=== PATIENT | male | born 1960 | race Caucasian/White ===

== ENCOUNTER 2018-01-30 21:20 | Emergency (ER) | payer OTHER ==
[2018-01-30 21:26] VITALS: TEMP 97.5
[2018-01-30 22:08] LABS: Basophils # (A) 0.1 k/uL (0-0.2); Basophils % (A) 1 %; Eosinophils # (A) 0.4 k/uL (0-0.7); Eosinophils % (A) 5 %; HGB 15.9 gm/dL (13.0-17.5); Lymphocytes % (A) 23 %; MCH 31.8 pg (25.0-35.0); MCHC 33.9 g/dL (31.0-37.0); Mean Platelet Volume 6.5; Monocytes # (A) 0.5 k/uL (0-1.0); Monocytes % (A) 5 %; Neutrophils # (A) 5.5 k/uL (1.3-7.7); Neutrophils % (A) 63 %; Platelet Count 265 k/uL (150-450); RDW 13.2 % (11.5-15.5); WBC 8.6 k/uL (3.8-10.6)
[2018-01-30 22:18] LABS: ALT 26 U/L (21-72); AST 21 U/L (17-59); Albumin 4.1 g/dL (3.5-5.0); Alkaline Phosphatase 75 U/L (38-126); Anion Gap 15 mmol/L; Blood Urea Nitrogen 11 mg/dL (9-20); Calcium 9.1 mg/dL (8.4-10.2); Carbon Dioxide 17 mmol/L (22-30); Chloride 103 mmol/L (98-107); Glucose 95 mg/dL (74-99); Potassium 4.7 mmol/L (3.5-5.1); Sodium 135 mmol/L (137-145); Total Bilirubin 0.6 mg/dL (0.2-1.3); Total Protein 6.3 g/dL (6.3-8.2)
--- NOTE | 2018-01-30 22:18 | XR ---
EXAMINATION TYPE: XR chest 2V DATE OF EXAM: 01/30/2018 COMPARISON: NONE HISTORY: Chest pain TECHNIQUE: Frontal and lateral views of the chest are obtained. FINDINGS: There is no heart failure nor confluent pneumonic infiltrate. Costophrenic angles are yoel r. Bony thorax is intact. Pulmonary vascularity is normal. IMPRESSION: Normal chest
[2018-01-30 22:21] LABS: Alcohol 194 mg/dL; Creatine Kinase 58 U/L (55-170)
[2018-01-30 22:31] LABS: INR 0.9 (<1.2); Partial Thromboplastin Time 22.3 sec (22.0-30.0); Prothrombin Time 9.4 sec (9.0-12.0)
[2018-01-30 22:34] LABS: Creatine Kinase MB 1.1 ng/mL (0.0-2.4); Troponin I <0.012 ng/mL (0.000-0.034)
--- NOTE | 2018-01-30 22:46 | ED ---
General Adult HPI - General Chief complaint: Chest Pain Stated complaint: Chest pain/armpit abscess Time Seen by Provider: 01/30/18 21:32 Source: patient, RN notes reviewed, old records reviewed Mode of arrival: wheelchair Limitations: no limitations - History of Present Illness Initial comments: 57-year-old male presents with chief complaint of left axilla pain and swelling and upper chest pain. Patient's chest pain is bilateral upper chest pain. No dyspnea. No nausea vomiting. No radiating chest pain. No substernal chest pain. Patient states it is sharp and intermittent in nature. Chief complaint is really abscess in the left axilla. Denies fever or chills. Patient states he has had some swelling in his left axilla for some time, over the past several days this is become warm and erythematous with worsening swelling. No fever or chills. - Related Data Home Medications Medication Instructions Recorded Confirmed Aspirin [Adult Low Dose Aspirin EC] 81 mg PO DAILY 01/30/18 01/30/18 Blood Thinner 1 tab PO DAILY 01/30/18 01/30/18 Lisinopril [Zestril] 5 mg PO DAILY 01/30/18 01/30/18 Previous Rx's Medication Instructions Recorded Cephalexin [Keflex] 500 mg PO Q8HR #30 cap 01/30/18 Sulfamethox-Tmp 800-160Mg [Bactrim 1 tab PO Q12HR #28 tab 01/30/18 DS 800-160 mg] Allergies Allergy/AdvReac Type Severity Reaction Status Date / Time No Known Allergies Allergy Verified 01/30/18 22:10 Review of Systems ROS Statement: Those systems with pertinent positive or pertinent negative responses have been documented in the HPI. ROS Other: All systems not noted in ROS Statement are negative. Past Medical History Past Medical History: Myocardial Infarction ([place]) History of Any Multi-Drug Resistant Organisms: None Reported Past Surgical History: Heart Catheterization With Stent Past Psychological History: No Psychological Hx Reported Smoking Status: Current every day smoker Past Alcohol Use History: Daily Past Drug Use History: None Reported General Exam Limitations: no limitations General appearance: alert, in no apparent distress, appears intoxicated Head exam: Present: atraumatic, normocephalic Eye exam: Present: normal appearance, PERRL ENT exam: Present: normal exam Neck exam: Present: normal inspection. Absent: tenderness, meningismus Respiratory exam: Present: normal lung sounds bilaterally. Absent: respiratory distress, wheezes Cardiovascular Exam: Present: regular rate, normal rhythm GI/Abdominal exam: Present: soft. Absent: distended, tenderness Extremities exam: Present: normal inspection, full ROM. Absent: normal capillary refill, pedal edema Neurological exam: Present: alert, oriented X3 Psychiatric exam: Present: normal affect, normal mood Skin exam: Present: warm, other (4 cm area of swelling in the left axilla, there is fluctuance with surrounding induration, and cellulitis.) Course Vital Signs 01/30/18 01/30/18 01/30/18 21:23 22:29 23:57 Temperature 97.5 F L Pulse Rate 88 72 Respiratory 16 18 Rate Blood Pressure 123/63 186/86 140/67 O2 Sat by Pulse 98 97 Oximetry EKG Findings - EKG Comments: EKG Findings:: EKG: Normal sinus rhythm, left bundle branch block, rate of 82, NJ interval 204, QRS duration 150, QTC 483, no ST segment elevation, negative Scarbosa criteria. Procedures - Incision & Drainage Consent Obtained: verbal consent Time Out Performed?: Yes Site: upper extremity I&D Cleaning Method: Betadine Sterile Field Used?: Yes Scalpel Used: #11 Needle Aspiration Performed?: Yes Irrigation Performed?: Yes I&D Drainage Obtained: Pus Packing: Iodoform Culture Obtained?: No Patient Tolerated Procedure: well Medical Decision Making - Medical Decision Making 57-year-old male presenting for abscess in the left axilla, this restrained in the emergency department, iodoform packing. Patient does have some surrounding cellulitis, will be started on Keflex and Bactrim, given surgical outpatient follow-up. Regarding patient's chest pain, patient does have history of coronary artery disease, his chest pain is atypical. EKG shows normal sinus rhythm with left bundle branch block, this is compared to previous EKG from [facility] and patient does have history of left bundle, overall unchanged EKG. Initial troponin is negative, repeat troponin is negative. If patient's second troponin is negative he will be discharged. He is clinically intoxicated and is discharged with a friend. - Lab Data Result diagrams: 01/30/18 21:53 01/30/18 21:53 Lab Results 01/30/18 01/30/18 01/30/18 Range/Units 21:53 21:53 21:53 WBC 8.6 (3.8-10.6) k/uL RBC 5.00 (4.30-5.90) m/uL Hgb 15.9 (13.0-17.5) gm/dL Hct 47.0 (39.0-53.0) % MCV 94.0 (80.0-100.0) fL MCH 31.8 (25.0-35.0) pg MCHC 33.9 (31.0-37.0) g/dL RDW 13.2 (11.5-15.5) % Plt Count 265 (150-450) k/uL Neutrophils % 63 % Lymphocytes % 23 % Monocytes % 5 % Eosinophils % 5 % Basophils % 1 % Neutrophils # 5.5 (1.3-7.7) k/uL Lymphocytes # 2.0 (1.0-4.8) k/uL Monocytes # 0.5 (0-1.0) k/uL Eosinophils # 0.4 (0-0.7) k/uL Basophils # 0.1 (0-0.2) k/uL PT (9.0-12.0) sec INR (<1.2) APTT (22.0-30.0) sec Sodium 135 L (137-145) mmol/L Potassium 4.7 (3.5-5.1) mmol/L Chloride 103 (98-107) mmol/L Carbon Dioxide 17 L (22-30) mmol/L Anion Gap 15 mmol/L BUN 11 (9-20) mg/dL Creatinine 0.81 (0.66-1.25) mg/dL Est GFR (CKD-EPI)AfAm >90 (>60 ml/min/1.73 sqM) Est GFR (CKD-EPI)NonAf >90 (>60 ml/min/1.73 sqM) Glucose 95 (74-99) mg/dL Calcium 9.1 (8.4-10.2) mg/dL Magnesium 2.0 (1.6-2.3) mg/dL Total Bilirubin 0.6 (0.2-1.3) mg/dL AST 21 (17-59) U/L ALT 26 (21-72) U/L Alkaline Phosphatase 75 (38-126) U/L Total Creatine Kinase 58 (55-170) U/L CK-MB (CK-2) 1.1 (0.0-2.4) ng/mL CK-MB (CK-2) Rel Index 1.9 Troponin I <0.012 (0.000-0.034) ng/mL Total Protein 6.3 (6.3-8.2) g/dL Albumin 4.1 (3.5-5.0) g/dL Serum Alcohol 194 mg/dL 01/30/18 01/31/18 Range/Units 21:53 00:10 WBC (3.8-10.6) k/uL RBC (4.30-5.90) m/uL Hgb (13.0-17.5) gm/dL Hct (39.0-53.0) % MCV (80.0-100.0) fL MCH (25.0-35.0) pg MCHC (31.0-37.0) g/dL RDW (11.5-15.5) % Plt Count (150-450) k/uL Neutrophils % % Lymphocytes % % Monocytes % % Eosinophils % % Basophils % % Neutrophils # (1.3-7.7) k/uL Lymphocytes # (1.0-4.8) k/uL Monocytes # (0-1.0) k/uL Eosinophils # (0-0.7) k/uL Basophils # (0-0.2) k/uL PT 9.4 (9.0-12.0) sec INR 0.9 (<1.2) APTT 22.3 (22.0-30.0) sec Sodium (137-145) mmol/L Potassium (3.5-5.1) mmol/L Chloride (98-107) mmol/L Carbon Dioxide (22-30) mmol/L Anion Gap mmol/L BUN (9-20) mg/dL Creatinine (0.66-1.25) mg/dL Est GFR (CKD-EPI)AfAm (>60 ml/min/1.73 sqM) Est GFR (CKD-EPI)NonAf (>60 ml/min/1.73 sqM) Glucose (74-99) mg/dL Calcium (8.4-10.2) mg/dL Magnesium (1.6-2.3) mg/dL Total Bilirubin (0.2-1.3) mg/dL AST (17-59) U/L ALT (21-72) U/L Alkaline Phosphatase (38-126) U/L Total Creatine Kinase (55-170) U/L CK-MB (CK-2) (0.0-2.4) ng/mL CK-MB (CK-2) Rel Index Troponin I <0.012 (0.000-0.034) ng/mL Total Protein (6.3-8.2) g/dL Albumin (3.5-5.0) g/dL Serum Alcohol mg/dL Disposition Clinical Impression: Chest pain, Abscess Disposition: HOME SELF-CARE Condition: Good Instructions: Chest Pain (ED), Abscess (ED) Prescriptions: Cephalexin [Keflex] 500 mg PO Q8HR #30 cap Sulfamethox-Tmp 800-160Mg [Bactrim DS 800-160 mg] 1 tab PO Q12HR #28 tab Is patient prescribed a controlled substance at d/c from ED?: No Referrals: None,Stated [Primary Care Provider] - 1-2 days Leanna Espinosa MD [STAFF PHYSICIAN] - 1-2 days Tere Raines MD [REFERRING] - 1-2 days Time of Disposition: 23:53
[2018-01-31 01:56] VITALS: BP 133/81; PULSE 91; RESP 16
== END 2018-01-31 01:56 | disposition home or self-care (01) ==
LOC: EC 21:20
DX: L02.412 Cutaneous abscess of left axilla (principal); R07.89 Other chest pain; I44.7 Left bundle-branch block, unspecified; I25.2 Old myocardial infarction; I25.10 Atherosclerotic heart disease of native coronary artery without angina pectoris; Z95.5 Presence of coronary angioplasty implant and graft; F17.200 Nicotine dependence, unspecified, uncomplicated; Z79.82 Long term (current) use of aspirin; Z79.01 Long term (current) use of anticoagulants; Z79.899 Other long term (current) drug therapy
CPT/HCPCS: 10061; 36415; 71046; 80053; 80320; 82550; 82553; 83735; 84484; 85025; 85610; 85730; 93005; 99285